=== PATIENT | female | born 1950 | race Caucasian/White ===

== ENCOUNTER 2017-05-06 10:20 | Outpatient (CLI) | payer MEDICARE, OTHER | END 2017-05-06 10:22 | LOC: POD 10:20 | PROVIDERS: ATTEND Podiatrist Public Medicine | DX: M72.2 Plantar fascial fibromatosis (principal); M79.671 Pain in right foot | CPT/HCPCS: G0463 ==

== ENCOUNTER 2017-05-20 08:45 | Outpatient (CLI) | payer MEDICARE, OTHER | END 2017-05-20 08:46 | LOC: POD 08:45 | PROVIDERS: ATTEND Podiatrist Public Medicine | DX: M72.2 Plantar fascial fibromatosis (principal); M79.671 Pain in right foot | CPT/HCPCS: G0463 ==